=== PATIENT | female | born 1960 ===

== ENCOUNTER 2017-08-02 18:44 | Emergency (ER) | payer OTHER ==
[2017-08-02 18:44] VITALS: BMI 43.9
[2017-08-02 19:23] VITALS: BP 129/89; PULSE 90; RESP 16; TEMP 97.3; O2SAT 98
--- NOTE | 2017-08-02 19:57 | C.PDOC ---
History Of Present Illness 56year old female presents to ED with complaints of right sided neck pain for almost 2 weeks, and now radiates to right shoulder. She reports awoke one morning with the pain it was mild aching and has been taking Ibuprofen with transient relief. She states for the past 2 days, pain has been persistent and worsens with movement or strenuous use of arm. She is right hand dominant. Denies any fever, headache, injury, numbness, weakness. Time Seen by Provider: 08/02/17 19:29 Chief Complaint (Nursing): Upper Extremity Problem/Injury History Per: Patient History/Exam Limitations: no limitations Onset/Duration Of Symptoms: Days (2 weeks) Current Symptoms Are (Timing): Still Present Past Medical History Reviewed: Historical Data, Nursing Documentation, Vital Signs Vital Signs: Last Vital Signs Temp 97.3 F L 08/02/17 19:20 Pulse 90 08/02/17 19:20 Resp 16 08/02/17 19:20 BP 129/89 08/02/17 19:20 Pulse Ox 98 08/02/17 20:19 - Medical History PMH: Arthritis Surgical History: No Surg Hx Family History: States: No Known Family Hx - Social History Hx Tobacco Use: No Hx Alcohol Use: Yes Hx Substance Use: No (patient has a history of narcotic abuse) - Immunization History Hx Tetanus Toxoid Vaccination: No Hx Influenza Vaccination: No Hx Pneumococcal Vaccination: No Review Of Systems Constitutional: Negative for: Fever Eyes: Negative for: Vision Change Cardiovascular: Negative for: Chest Pain, Palpitations Respiratory: Negative for: Shortness of Breath Gastrointestinal: Negative for: Abdominal Pain Musculoskeletal: Positive for: Neck Pain (right sided), Shoulder Pain ( radiating pain to right shoulder) Neurological: Negative for: Weakness, Numbness, Headache Physical Exam - Physical Exam Appears: Non-toxic, No Acute Distress Skin: Warm, Dry, No Rash Head: Atraumatic, Normacephalic Eye(s): bilateral: Normal Inspection Oral Mucosa: Moist Neck: Normal ROM, Supple, Other ((+) paracervical muscle tenderness, tenderness on palpation of the trapezius muscle) Chest: Symmetrical Cardiovascular: Rhythm Regular, No Murmur Respiratory: Normal Breath Sounds, No Wheezing Extremity: Normal ROM (right shoulder and all joints), No Tenderness, Capillary Refill (<2 secs), No Deformity, No Swelling Neurological/Psych: Oriented x3, Normal Speech, Normal Motor, Normal Sensation Gait: Steady ED Course And Treatment O2 Sat by Pulse Oximetry: 98 (RA) Pulse Ox Interpretation: Normal Medical Decision Making Medical Decision Making: Impression: right sided neck pain, with reproducible muscle tenderness Plan: * C-spine Xray * Valium PO Progress: Xray shows mild straightening of cervical curvature, likely from spasm; no fracture or deformity Re-Eval: Patient seated comfortably in chair in no distress. She reports pain is improving. She has no fever and stable vital signs. Neck is supple. Patient is stable for discharge and recommend follow up with PCP. Rx given. Disposition Counseled Patient/Family Regarding: Diagnosis, Need For Followup, Rx Given - Disposition Referrals: Ventura Valero MD [IM] - Disposition: HOME/ ROUTINE Disposition Time: 20:17 Condition: GOOD Additional Instructions: Your XRay was normal. You may apply heat to the area for 15-30 minutes 2-3 times per day. Please take pain medicine as needed. Take muscle relaxant as needed, may cause drowsiness. Follow up with your primary doctor or orthopedic if pain persists. Prescriptions: Methocarbamol [Robaxin-750] 750 mg PO Q8 #21 tablet Instructions: Cervical Strain (GEN) Forms: [employer] (Hebrew) - POA Present On Arrival: None - Clinical Impression Clinical Impression: Strain of neck muscle - PA / ART SUPERVISOR / Resident Statement MD/DO has reviewed & agrees with the documentation as recorded. - Scribe Statement The provider has reviewed the documentation as recorded by the Scribe Lynda Arenas All medical record entries made by the Scribe were at my direction and personally dictated by me. I have reviewed the chart and agree that the record accurately reflects my personal performance of the history, physical exam, medical decision making, and the department course for this patient. I have also personally directed, reviewed, and agree with the discharge instructions and disposition.
--- NOTE | 2017-08-03 12:57 | RAD ---
PROCEDURE: Cervical spine 08/02/2017. AP lateral and open-mouth views of the cervical spine performed. Note the examination is somewhat limited due to partial obscuration of the distal tip of the odontoid by overlying occiput in the open-mouth projection. There is also incomplete visualization of the C6-C7 disc space is well as C7 segment in the lateral view due to overlying dense shoulder artifact. HISTORY: Pain. COMPARISON: No prior study available for comparison FINDINGS: BONES: No evidence of acute displaced fracture nor dislocation within limitation of the study. DISC SPACES: Minor multilevel degenerative spondylosis most notably affecting the lower set cervical segments the changes include minor anterior disc space narrowing with small marginal anterior osteophyte formation. SOFT TISSUES: Normal. No prevertebral soft tissue swelling. OTHER FINDINGS: None. IMPRESSION: Somewhat limited study as described. No evidence of acute displaced fracture the within limitation of the exam. Minor multilevel degenerative spondylosis
== END 2017-08-02 20:26 | disposition home or self-care (01) ==
LOC: C.ER 18:44
DX: S16.1XXA Strain of muscle, fascia and tendon at neck level, initial encounter (principal); X58.XXXA Exposure to other specified factors, initial encounter; Y92.9 Unspecified place or not applicable